=== PATIENT | male | born 1940 | race Caucasian/White ===

== ENCOUNTER 2017-10-23 18:18 | Emergency (ER) | payer MEDICARE, BC ==
--- NOTE | 2017-10-23 18:50 | EDM.PDOC ---
ED HPI GENERAL MEDICAL PROBLEM - General Stated Complaint: CATHETER CAME OUT Time Seen by Provider: 10/23/17 18:18 Source of Information: Reports: Patient History Limitations: Reports: No Limitations - History of Present Illness INITIAL COMMENTS - FREE TEXT/NARRATIVE: 77 y.o.w.m with a suprapubic hilliard cath placed due to weakness of the wall of the urinary bladder, came to the ED 4-5 hours after he pulled by accident his suprapubic hilliard catheter out. PT was seen at the clinic first and sent to the ED to place a new suprapubic catheter. Pt has minor suprapubic pain. His Suprapubic cath is exchanged every 3 month. He has an appointment with the urologist at [facility] tomorrow at 10 am to get his Suprapubic catheter replaced. Pt denies any other acute medical issues at his time. BP 153/53 RR 20 Pulse ox 98% on RA pulse 78 Temp 36.8 Onset Date: 10/23/17 Onset Time: 14:00 Duration: Hour(s):, Getting Worse Location: Reports: Pelvis Quality: Reports: Dull Severity: Mild Improves with: Reports: Rest Worsens with: Reports: Movement Context: Reports: Other (pulled suprapubic catheter 4-5 hours ago by accident) Associated Symptoms: Reports: Other (unable to void) - Related Data Allergies Allergy/AdvReac Type Severity Reaction Status Date / Time No Known Allergies Allergy Verified 10/23/17 19:16 Home Meds: Home Meds Amlodipine/Valsartan/Hcthiazid [[id number] 5-160-12.5 mg] 1 tab DAILY [History] Aspirin [Ecotrin] 325 mg PO DAILY 10/23/17 [History] Gabapentin [Neurontin] 200 mg PO BID 10/23/17 [History] Insuln Asp Prot/Insulin Aspart [NovoLOG Mix 70-30] 39 units SQ BID 10/23/17 [ History] Multivitamin [Multi-Vitamin Daily] 1 each PO DAILY 10/23/17 [History] Simvastatin [Zocor] 40 mg PO DAILY 10/23/17 [History] Warfarin Sodium [Coumadin] 7.5 mg PO MOFR 10/23/17 [History] Warfarin [Coumadin] 5 mg PO SUTUWETHSA 10/23/17 [History] ED ROS GENERAL - Review of Systems Review Of Systems: See Below Constitutional: Reports: No Symptoms HEENT: Reports: No Symptoms Respiratory: Reports: No Symptoms Cardiovascular: Reports: No Symptoms Endocrine: Reports: No Symptoms GI/Abdominal: Reports: No Symptoms : Reports: Pain, Other (suprapubic cath is out for 4-5 hors) Musculoskeletal: Reports: No Symptoms Skin: Reports: No Symptoms Neurological: Reports: No Symptoms Psychiatric: Reports: No Symptoms Hematologic/Lymphatic: Reports: No Symptoms Immunologic: Reports: No Symptoms ED EXAM, RENAL/ - Physical Exam Exam: See Below Exam Limited By: No Limitations General Appearance: Alert, WD/WN, Mild Distress Eye Exam: Bilateral Eye: Normal Inspection Ears: Normal External Exam, Normal Canal Nose: Normal Inspection, Normal Mucosa, No Blood Throat/Mouth: Normal Inspection, Normal Lips, Normal Gums, Normal Voice, No Airway Compromise Head: Atraumatic, Normocephalic Neck: Normal Inspection, Supple, Non-Tender, Full Range of Motion Respiratory/Chest: No Respiratory Distress, Lungs Clear, Normal Breath Sounds, No Accessory Muscle Use, Chest Non-Tender Cardiovascular: Normal Peripheral Pulses, Regular Rate, Rhythm, No Edema, No Gallop GI/Abdominal: Normal Bowel Sounds, Soft, No Organomegaly, Pelvis Stable, Other ( suprapubic catherter is out) (Male) Exam: Suprapubic Fullness Rectal (Males) Exam: Deferred Back Exam: Normal Inspection, Full Range of Motion Extremities: Normal Inspection, No Pedal Edema, Normal Capillary Refill Neurological: Alert, Oriented, CN II-XII Intact, Normal Cognition Psychiatric: Normal Affect, Normal Mood Skin Exam: Warm, Dry, Intact Lymphatic: No Adenopathy ED PROCEDURES - Suprapubic Catheter Insertion Performed by:: Hema Villalpando Course - Vital Signs Text/Narrative:: 77 y.o.w.m with a suprapubic hilliard cath placed due to weakness of the wall of the urinary bladder, came to the ED 4-5 hours after he pulled by accident his suprapubic hilliard catheter out. PT was seen at the clinic first and sent to the ED to place a new suprapubic catheter. Pt has minor suprapubic pain. His Suprapubic cath is exchanged every 3 month. He has an appointment with the urologist at [facility] tomorrow at 10 am to get his Suprapubic catheter replaced. Pt denies any other acute medical issues at his time. BP 153/53 RR 20 Pulse ox 98% on RA pulse 78 Temp 36.8 PE: WNWD W M with suprapubic tenderness, Suprapubic Cath out Procedure: Suprapubic opening was irrigated with NS and betadiene, an 18F Cath was attempted to be placed into the bladder under sterile conditions. Unable to do so because the suprapubic opening was closed. To place a regular hilliard cath through the Urethra was impossible. Bladder scanner showed 520 CC of urine in the bladder. Impression: Suprapubic urinary catheter placement, unsuccessful 6.50 pm Consultation: Dr. Mccurdy, Urologist, [facility]: transfer pt to [place], interventional Radiologist has to place the suprapubic Hilliard catheter 7.09 pm Consultation: Dr. Coyle [facility] [address] [place] [address]: Accepted the pt for transfer and further care. Plan: Transfer to [facility] with a friend by PC. Last Recorded V/S: Last Vital Signs Temp 36.9 C 10/23/17 19:30 Pulse 80 10/23/17 19:30 Resp 18 10/23/17 19:30 BP 129/83 10/23/17 19:30 Pulse Ox 97 10/23/17 19:30 Departure - Departure Time of Disposition: 19:15 Disposition: DC/Tfer to Other 70 Condition: Fair Clinical Impression: Urinary retention - Discharge Information Instructions: Acute Urinary Retention, Male, [id number] Referrals: Edgar Gutierrez MD [Primary Care Provider] - Forms: ED Department Discharge Additional Instructions: Please go straight to [facility] [place] at [phone] [facility] for suprapubic catheter placement by an interventional radiologist. Please come back to the ED if your symptoms get worse acutely
== END 2017-10-23 19:30 | disposition other institution (70) ==
LOC: FB.ED 18:18
DX: R33.9 Retention of urine, unspecified (principal); Z79.82 Long term (current) use of aspirin; Z79.01 Long term (current) use of anticoagulants; Z79.899 Other long term (current) drug therapy
CPT/HCPCS: 51702; 51705; 51798; 99283